=== PATIENT | female | born 1950 | race Caucasian/White ===

== ENCOUNTER 2022-09-23 14:24 | Emergency (ER) | payer MEDICARE, OTHER ==
[~2022-09-23] VITALS: Ht 160 cm; Wt 68.2 kg
[2022-09-23] MEDS ORDERED: ASPI81CH33 PO (14:41)
[2022-09-23] MEDS: ACETAMINOPHEN 325 MG TAB PO ONE (15:06)
[2022-09-23] MEDS ORDERED: LIDOCAINE 2% MDV 20ML VIAL SC ONE (16:00)
[2022-09-23] MEDS ORDERED: PERC5TAB12 PO (17:01)
[2022-09-23] MEDS: oxyCODONE 5MG TAB PO ONE (17:04)
[2022-09-23 17:13] VITALS: BP 155/76
== END 2022-09-23 17:14 | disposition home or self-care (01) ==
LOC: M ED 14:24
DX: S52.352A Displaced comminuted fracture of shaft of radius, left arm, initial encounter for closed fracture (principal); S52.615A Nondisplaced fracture of left ulna styloid process, initial encounter for closed fracture; W19.XXXA Unspecified fall, initial encounter; Z79.1 Long term (current) use of non-steroidal anti-inflammatories (NSAID); Z79.899 Other long term (current) drug therapy